=== PATIENT | female | born 1970 | race Caucasian/White ===

== ENCOUNTER 2016-08-16 16:40 | Emergency (ER) | payer BC ==
[~2016-08-16] VITALS: Ht 154.9 cm; Wt 89.9 kg
[2016-08-16 16:40] VITALS: Ht 154.9 cm; Wt 89.9 kg
[~2016-08-16 16:40] MED LIST: ACYC800T PO; CEPH500C2 PO; CITA40TA6 PO; HYDR-4246 PO; INSU100C13 SQ; INSU100V28 SQ; LISI-127 PO; LOVA10TA2; METF500T4 PO; SULF1TAB42 PO; TRAZ-170 PO
--- NOTE | 2016-08-16 16:58 | ERPDOC ---
Departure Disposition Decision Date: Aug 16, 2016 Disposition Decision Time: 18:29 (MERA NATHAN MD) Disposition: 01 DISCHARGED HOME, SELF-CARE Impression Impression (YOAN CLINTON DO) Impression: Primary Impression: Diabetes mellitus Additional Impression: Slurred speech Ruled Out: Chest pain Severity: Moderate (MERA NATHAN MD) Condition: Improved Seen By: Physician only (MERA NATHAN MD) Referrals: DONTA HUIZAR APRN (Family) Patient Instructions: Altered Mental Status (ED) Problems/Meds/Labs Reviewed?: Yes Medications reviewed and manag: Yes (MERA NATHAN MD) Additional Instructions: Lantus and ropinirole are refilled for one month. Follow-up with her primary care physician as needed. Follow up care ordered?: Yes Mental Status: Alert, Oriented (MERA NATHAN MD) Scripts Ropinirole HCl (Ropinirole HCl) 0.5 Mg Tablet 1 TAB PO QHSPRN, #30 TAB Prov: MERA NATHAN MD 08/16/16 Insulin Glargine,Hum.rec.anlog (Lantus Solostar) 1 Unit Pen 35 UNIT SQ HS, #15 ML 3 Refills Prov: MERA NATHAN MD 08/16/16 HPI - CVA/Neuro General Stated Complaint: FACIAL DROOP AND SLURRING WORDS Time Seen by Provider: 16:49 Source: patient (Patient presents to the ER with multiple vague complaints. Patient apparently had restless legs last night, but is out of her medications. She states that last night her boyfiend noticed she had slurred speech, although the patient denies, these symptoms were noticed at approx 19:00 hours on 08/15/2016. Patient arrices in the ER asymptomatic, without her dentures, but there is no noticable slurred speech or facial assymetry. There are no Focal Neruological/Motor or sensory deficits found. ) Exam Limitations: no limitations (YOAN CLINTON DO) Time Seen by Provider: 18:21 (MERA NATHAN MD) Onset of Symptoms Onset of Symptoms Date: Aug 15, 2016 Onset of Symptoms Time: 19:00 Date/Time of Symptoms UNK: Yes Date Last Known Well: Aug 15, 2016 Time Last Known Well: 19:00 Last Known Well Approximated: Yes (YOAN CLINTON DO) HPI - CVA/NEURO Occurred At: home Onset/Timing: Changing over time Duration: 12-24 hrs Pain/Severity Scale: Now & Worst: 0/10 Associated Symptoms: denies symptoms Hx of Similar Symptoms: No Modifying Factors: Other (none) (YOAN CLINTON DO) Allergies: Coded Allergies: doxycycline (Verified Allergy, Severe, 06/21/14) codeine (Verified Allergy, Unknown, 06/21/14) Past History Past Medical History Metabolic: diabetes, hypercholesterolemia, hypertension Psychological: depression (YOAN CLINTON DO) Surgical History General: other Reproductive/: , tubal ligation (YOAN CLINTON DO) Vaccines Hx Influenza Vaccination: Yes (2014) Hx Pneumococcal Vaccination: No Hx Tetanus, Diptheria, Pertuss: Yes (2014) (YOAN CLINTON DO) Social History Smoking Status: Unknown if ever smoked Does patient use chewing tobac: No Second Hand Exposure: No Substance Use Type: does not use Alcohol Intake: none Marital Status: Single Sexuality: male partner Housing: house Household Members: significant other Service: No Occupational Hazard: No Advance Directives: Yes Full Code (YOAN CLINTON DO) Record Review Pertinent history updated: Yes (YOAN CLINTON DO) Review of Systems Constitutional Constitutional: DENIES: chills, fever (YOAN CLINTON DO) Eyes Lids/Accessories: DENIES: erythema, swelling (YOAN CLINTON DO) ENMT Ears: DENIES: erythema, pain Balance: DENIES: ataxia, vertigo Sinuses: DENIES: congestion, rhinorrhea Mouth/Throat: DENIES: sore throat (YOAN CLINTON DO) Cardiovascular Cardiac: DENIES: chest pain, dyspnea on exertion, orthopnea Rhythm/Rate: DENIES: tachycardia (YOAN CLINTON DO) Pulmonary Respiratory: DENIES: cough, dyspnea, sputum (YOAN CLINTON DO) GI Upper Abdomen: DENIES: nausea, pain, vomiting Lower Abdomen: DENIES: constipation, diarrhea, pain (YOAN CLINTON DO) General: DENIES: dysuria (YOAN CLINTON DO) Musculoskeletal General: DENIES: cramps, pain, weakness (YOAN CLINTON DO) Integumentary Skin: DENIES: color change, itching, rash (OZYOAN DO) Neurological General: DENIES: ataxia, change in strength, headache, numbness, poor coordination, seizures, syncope, vertigo, weakness (OZYOAN DO) Psychiatric Psychiatric: DENIES: anxiety, depression, nervousness (OZ,YOAN DO) Hematologic/Lymphatic Hematologic/Lymphatic: DENIES: anemia (OZ,YOAN DO) Allergic/Immunological Allergic/Immunoligical: DENIES: sneezing (OZYOAN DO) All other Systems All Other Systems: Reviewed and Negative (OZYOAN DO) Physical Exam General General Nourishment: well nourished, well developed, appears stated age, adult General Body Habitus: well groomed (OZDAGOYOAN DO) Vitals and Pain First Documented Vital Signs Date Time Temp Pulse Resp B/P Pulse Ox O2 Delivery O2 Flow Rate FiO2 08/16/16 16:40 98.3 81 20 154/83 99 Room Air (MERA NATHAN MD) Vitals and Pain Weight: Kilograms: Height (feet): 5 Height (inches): 1 Triage Pain Scale: (DAGO CLINTONIN DO) RN VS reviewed by Provider: Yes (DAGO CLINTONIN DO) Eyes (brief) Eyes Brief: found: EOMI, PERRL (OZYOAN DO) ENMT (brief) ENMT Brief: FOUND: TM clear, TM good light reflex, mucosa moist, NOT FOUND: pharnyx erythema (OZ,YOAN DO) Neck (brief) Neck: FOUND: trachea midline, NOT FOUND: adenopathy, nuchal rigidity, tenderness, tracheal deviation (OZ,YOAN DO) Respiratory (brief) Respiratory: FOUND: clear all mendoza, equal bilaterally (OZ,YOAN DO) Cardiovascular (brief) Cardiac: FOUND: regular rate, regular rhythm Capillary Refill: <2 sec Pulses: all distal extremities, equal, strong (OZ,YOAN DO) Abdomen (brief) Abdominal Brief: FOUND: bowel normo active x4, soft, NOT FOUND: distended, tender (OZ,YOAN DO) Lymphatic (brief) Lymphatic Brief: NOT FOUND: adenopathy (OZ,YOAN DO) Musculoskeletal (brief) Musculoskeletal Brief: NOT FOUND: spasm, tenderness (OZ,YOAN DO) Integumentary (brief) Integumentary Brief: FOUND: pink, warm (YOAN CLINTON DO) Neurologic (brief) Neurological Brief: FOUND: CN w/o gross def to obs, DTR 2/4 all extremities, gait w/o gross def to obs, motor-no gross deficits, sensory-no gross deficits, NOT FOUND: ataxia (YOAN CLINTON DO) Psychiatric (brief) Psychiatric Brief: FOUND: alert, attentive, normal affect, oriented (YOAN CLINTON DO) Differential Diagnoses Considering: Thrombotic CVA, Hemorrhagic CVA, Encephalitis, Hypertensive Emergency, Hypo/hypercalcemia, Hypo/hyperglycemia, Hypo/hypernatremia, Medication Effect, Meningitis, Neuropathy, TIA, Other (YOAN CLINTON DO) Progress Results/Orders Orders Procedure Category Date Status Time Iv Lock (Ed Only) EDM 08/16/16 Transmitted 16:49 Nothing By Mouth (Ed EDM 08/16/16 Transmitted Only) 16:49 Cbc W/Auto LAB 08/16/16 Complete Diff-Reflex Manual 16:49 Cmp - Comprehensive LAB 08/16/16 Complete Metabolic 16:49 Troponin I W LAB 08/16/16 Complete Hemolysis Index 16:49 INR LAB 08/16/16 Complete 16:49 EKG EKG 08/16/16 Logged 16:49 Ct Head W/O Contrast CT 08/16/16 Taken 16:49 Ua, Dip Wreflex LAB 08/16/16 Complete Microsc & [employer] Apprentice 16:49 Insulin Glargine PHA 08/16/16 In Process (Lantus) 18:30 (MERA NATHAN MD) Lab Results Laboratory Tests Test 08/16/16 17:17 08/16/16 17:34 White Blood Count 7.8T/MM3 Red Blood Count 4.11M/MM3 Hemoglobin 11.9GM/DL Hematocrit 37.2% Mean Corpuscular Volume 90.5UM3 Mean Corpuscular Hemoglobin 29.0UUG Mean Corpuscular Hemoglobin Concent 32.0GM/DL RDW Standard Deviation 44.0FL Platelet Count 261T/MM3 Mean Platelet Volume 10.0UM3 Immature Granulocyte % (Auto) 0.6% Neutrophils (%) (Auto) 71.5% Lymphocytes (%) (Auto) 18.7% Monocytes (%) (Auto) 5.0% Eosinophils (%) (Auto) 3.7% Basophils (%) (Auto) 0.5% Absolute Immature Granulocyte (auto 0.05T/MM3 Absolute Neutrophils (auto) 5.5T/MM3 Absolute Lymphocytes (auto) 1.5T/MM3 Absolute Monocytes (auto) 0.4T/MM3 Absolute Eosinophils (auto) 0.3T/MM3 Absolute Basophils (auto) 0.0T/MM3 Prothromb Time International Ratio 1.06 Turbidity < 20 Sodium Level 141MEQ/L Potassium Level 4.6MEQ/L Chloride Level 103MEQ/L Carbon Dioxide Level 27MEQ/L Anion Gap 11MEQ/L Blood Urea Nitrogen 19.0MG/DL Creatinine 0.8MG/DL Glomerular Filtration Rate Calc 77 BUN/Creatinine Ratio 24RATIO Glucose Level 276MG/DL Calculated Osmolality 283MOSM/KG Calcium Level 9.4MG/DL Total Bilirubin 0.40MG/DL Icterus Index < 2 Aspartate Amino Transf (AST/SGOT) 20U/L Alanine Aminotransferase (ALT/SGPT) 30U/L Alkaline Phosphatase 77U/L Troponin I < 0.012ng/ml Total Protein 6.9G/DL Albumin 3.9G/DL Globulin 3.0G/DL Albumin/Globulin Ratio 1.3RATIO Chemistry Specimen Hemolysis < 15 Urine Collection Type Cleancatch-midstream Urine Color Yellow Urine Turbidity Clear Urine pH 6.5 Urine Specific Sullivan 1.015 Urine Protein Trace Urine Glucose (UA) 3+ Urine Ketones Negative Urine Blood Negative Urine Nitrite Negative Urine Bilirubin Negative Urine Urobilinogen 1.0EU/DL Urine Leukocyte Esterase Negative Urinalysis Comment Microscopic not ind. (MERA NATHAN MD) Medications Current ED Medications Insulin Glargine (Lantus) 35 unit NOW ONCE SQ ; Start 08/16/16 at 18:30; Stop 08/16/16 at 18:31; Status DC (YOAN CLINTON DO) Progress Progress Case Discussed with Dr. Nathan at 1800hrs CT pending, will make final disposition (YOAN CLINTON DO) Progress CT had returned negative. Patient is discharged home. She is does not have any insulin or does she have ropinirole. She was given Lantus 35 units subcutaneous to get her through tonight, I did refill her Lantus for one month. Also gave her a prescription for the ropinirole 0.5 mg daily at bedtime. (MERA NATHAN MD) YOAN CLINTON DO Aug 16, 2016 16:58 MERA NATHAN MD Aug 16, 2016 18:32 RDW Standard Deviation 44.0FL Platelet Count 261T/MM3 Mean Platelet Volume 10.0UM3 Immature Granulocyte % (Auto) 0.6% Neutrophils (%) (Auto) 71.5% Lymphocytes (%) (Auto) 18.7% Monocytes (%) (Auto) 5.0% Eosinophils (%) (Auto) 3.7% Basophils (%) (Auto) 0.5% Absolute Immature Granulocyte (auto 0.05T/MM3 Absolute Neutrophils (auto) 5.5T/MM3 Absolute Lymphocytes (auto) 1.5T/MM3 Absolute Monocytes (auto) 0.4T/MM3 Absolute Eosinophils (auto) 0.3T/MM3 Absolute Basophils (auto) 0.0T/MM3 Prothromb Time International Ratio 1.06 Turbidity < 20 Sodium Level 141MEQ/L Potassium Level 4.6MEQ/L Chloride Level 103MEQ/L Carbon Dioxide Level 27MEQ/L Anion Gap 11MEQ/L Blood Urea Nitrogen 19.0MG/DL Creatinine 0.8MG/DL Glomerular Filtration Rate Calc 77 BUN/Creatinine Ratio 24RATIO Glucose Level 276MG/DL Calculated Osmolality 283MOSM/KG Calcium Level 9.4MG/DL Total Bilirubin 0.40MG/DL Icterus Index < 2 Aspartate Amino Transf (AST/SGOT) 20U/L Alanine Aminotransferase (ALT/SGPT) 30U/L Alkaline Phosphatase 77U/L Troponin I < 0.012ng/ml Total Protein 6.9G/DL Albumin 3.9G/DL Globulin 3.0G/DL Albumin/Globulin Ratio 1.3RATIO Chemistry Specimen Hemolysis < 15 Urine Collection Type Cleancatch-midstream Urine Color Yellow Urine Turbidity Clear Urine pH 6.5 Urine Specific Sullivan 1.015 Urine Protein Trace Urine Glucose (UA) 3+ Urine Ketones Negative Urine Blood Negative Urine Nitrite Negative Urine Bilirubin Negative Urine Urobilinogen 1.0EU/DL Urine Leukocyte Esterase Negative Urinalysis Comment Microscopic not ind. (YOAN CLINTON DO) Progress Progress Case Discussed with Dr. Nathan at 1800hrs CT pending, will make final disposition (OYAN CLINTON DO) Progress CT had returned negative. Patient is discharged home. She is does not have any insulin or does she have ropinirole. She was given Lantus 35 units subcutaneous to get her through tonight, I did refill her Lantus for one month. Also gave her a prescription for the ropinirole 0.5 mg daily at bedtime. (MERA NATHAN MD) YOAN CLINTON DO Aug 16, 2016 16:58 MERA NATHAN MD Aug 16, 2016 18:32
[2016-08-16] MEDS ORDERED: ROPI0.256 PO (17:15)
[2016-08-16] MEDS ORDERED: OMEP20CA10 PO (17:15)
[2016-08-16] MEDS ORDERED: ERGO400C PO (17:15)
[2016-08-16] MEDS ORDERED: METF10002 PO (17:15)
[2016-08-16] MEDS ORDERED: ASPI-557 PO (17:15)
[2016-08-16] MEDS ORDERED: CYAN10009 PO (17:15)
[2016-08-16] MEDS ORDERED: NORE0.3520 PO (17:15)
[2016-08-16] MEDS ORDERED: LISI1TAB11 PO (17:15)
[2016-08-16] MEDS ORDERED: PREG25CA PO (17:15)
[2016-08-16] MEDS ORDERED: LOVA40TA2 PO (17:15)
[2016-08-16 17:29] LABS: INR 1.06 (0.76-1.04); PROTHROMBIN TIME 11.6 SEC (9.31-12.49)
[2016-08-16 17:30] LABS: BASOPHILS % (AUTO) 0.5 % (0-2); EOSINOPHILS # (AUTO) 0.3 T/MM3 (0-0.5); EOSINOPHILS % (AUTO) 3.7 % (0-4); HCT - HEMATOCRIT 37.2 % (36-46); HGB - HEMOGLOBIN 11.9 GM/DL (12-16); IMMATURE GRANULOCYTE # (AUTO) 0.05 T/MM3 (0.00-0.03); IMMATURE GRANULOCYTE % (AUTO) 0.6 % (0.0-0.5); LYMPHOCYTES # (AUTO) 1.5 T/MM3 (1-4.8); LYMPHOCYTES % (AUTO) 18.7 % (23-45); MEAN CORPUSCULAR VOLUME 90.5 UM3 (80-100); MONOCYTES # (AUTO) 0.4 T/MM3 (0-0.8); NEUTROPHILS #(AUTO)-ABSOLUTE 5.5 T/MM3 (1.8-7.7); NEUTROPHILS % (AUTO) 71.5 % (33-66); RED BLOOD COUNT 4.11 M/MM3 (4.00-5.20); WBC - WHITE BLOOD COUNT 7.8 T/MM3 (4.5-11.0)
--- NOTE | 2016-08-16 17:35 | NUR ---
CT TO CT VIA WHEELCHAIR
[2016-08-16 17:37] LABS: ALBUMIN 3.9 G/DL (3.5-5.0); ALBUMIN/GLOBULIN RATIO 1.3 RATIO (1.1-2.2); ALKALINE PHOSPHATASE 77 U/L (38-126); ALT (SGPT) 30 U/L (9-52); ANION GAP 11 MEQ/L (5-15); AST (SGOT) 20 U/L (14-36); BUN/CREATININE RATIO 24 RATIO (6-26); CALCIUM 9.4 MG/DL (8.4-10.2); CHLORIDE 103 MEQ/L (98-107); CO2 - CARBON DIOXIDE 27 MEQ/L (22-30); CREATININE 0.8 MG/DL (0.7-1.2); GLOMERULAR FILTRATION RATE 77; GLUCOSE 276 MG/DL (65-110); POTASSIUM 4.6 MEQ/L (3.6-5); SODIUM 141 MEQ/L (134-144); TOTAL PROTEIN 6.9 G/DL (6.3-8.2)
[2016-08-16 17:38] LABS: BLOOD, URINE NEGATIVE (NEGATIVE); COLOR,URINE YELLOW (YELLOW); LEUKOCYTE ESTERASE ,URINE NEGATIVE (NEGATIVE); NITRITE,URINE NEGATIVE (NEGATIVE)
--- NOTE | 2016-08-16 17:58 | NUR ---
Gaudencio griffin in [facility] - 08/16/16 at 1821 by IAN REPORT PHONED REPORT TO PEARL CALIXTO.
[2016-08-16] MEDS ORDERED: INSULIN GLARGINE 100 UNIT/ML SQ ONE (18:30)
[2016-08-16] MEDS ORDERED: INSU3INS3 SQ (18:34)
[2016-08-16] MEDS ORDERED: ROPI0.5T5 PO (18:34)
[2016-08-16 18:48] VITALS: BP 176/72; PULSE 76; RESP 20; TEMP 98.3; O2SAT 94
--- NOTE | 2016-08-16 18:48 | NUR ---
DEPART VERBAL AND WRITTEN DISCHARGE INSTRUCTIONS GIVEN AND UNDERSTOOD. CONDITION STABLE. RELEASED AMBULATORY WITH FAMILY. SCRIPTS
--- NOTE | 2016-08-17 08:08 | DI ---
Indication: ITS.REASON: Altered mental status PROCEDURE: CT HEAD W/O CONTRAST: Encounter: Initial Comparison: None Technique: Axial CT images through the head were performed without contrast. Iterative Reconstruction dose reducing technique was utilized. FINDINGS: The ventricles are of normal size, shape, and configuration for the patient's age. There is no evidence of acute intracranial hemorrhage, midline displacement, or mass effect. The CT attenuation of the brain parenchyma is normal within the cerebellum, brain stem, and cerebral hemispheres. The tympanic cavities and mastoid air cells are free of appreciable disease. There are no definite fractures of the skull base, calvarium, or visualized portion of the midface. Bilateral frontal scalp swelling or hematoma. IMPRESSION: No CT evidence of acute intracranial abnormality. There is a preliminary report by [email or web address]. .
== END 2016-08-16 18:48 | disposition home or self-care (01) ==
LOC: ED 16:40
DX: R29.810 Facial weakness (principal); R47.81 Slurred speech; G25.81 Restless legs syndrome; E11.9 Type 2 diabetes mellitus without complications; Z79.4 Long term (current) use of insulin
CPT/HCPCS: 36415; 80053; 81003; 84484; 85025; 85610; 93005